=== PATIENT | female | born 1980 | race Caucasian/White ===

== ENCOUNTER → 2018-01-08 12:47 | Outpatient (CLI) | payer OTHER, SELFPAY ==
[2018-01-08 14:01] LABS: Cholesterol 152 mg/dL (200); Estradiol 50.8 pg/mL; Follicle Stimulating Hormone 5.3 mIU/mL; Glucose 91 mg/dL (74-106); High Density Lipoprotein 30 mg/dL; Thyroid Stim Hormone (TSH) 1.54 uIU/mL (0.358-3.74); Triglycerides 260 mg/dL; Very Low Density Lipoprotein 52 mg/dL (5-40)
[2018-01-12 03:07] LABS: DHEA Sulfate 279.1 ug/dL (57.3-279.2)
[2018-01-12 10:22] LABS: Testosterone Free 2.6 pg/mL (0.0-4.2)
== END ==
PROVIDERS: Family Provider Family Medicine; PCP Family Medicine; Visit Provider Obstetrics & Gynecology
DX: N97.9 Female infertility, unspecified (principal); E28.2 Polycystic ovarian syndrome
CPT/HCPCS: 36415; 80061; 82627; 82670; 82947; 83001; 84402; 84443; 82626

== ENCOUNTER 2018-04-08 12:08 | Emergency (ER) | payer OTHER, SELFPAY ==
[2018-04-08 12:09] VITALS: BP 159/92; PULSE 100; RESP 18; TEMP 36.8; O2SAT 99; BMI 46.0
--- NOTE | 2018-04-08 12:15 | EKG12_ITS ---
Test Reason : PALPS Blood Pressure : / mmHG Vent. Rate : 093 BPM Atrial Rate : 093 BPM P-R Int : 144 ms QRS Dur : 082 ms QT Int : 370 ms P-R-T Axes : 024 -30 008 degrees QTc Int : 460 ms Normal sinus rhythm Left axis deviation Abnormal ECG Confirmed by ALBERTO SUMNER, JULIANNE ([id number]), multimedia editor ROXANN MATAMOROS ([id number]) on 04/11/2018 2:44:22 PM Referred By: KATHLEEN Confirmed By:JULIANNE DOMINGUEZ MD
--- NOTE | 2018-04-08 12:16 | RAD_ITS ---
STUDY: X-RAY CHEST REASON FOR EXAM: Female, 37 years old. tightness, heart flutters x several days recently started taking metabolism booster, possible side effect TECHNIQUE: Frontal and lateral views of the chest. COMPARISON: None. FINDINGS: The lungs are clear and expanded. There is no demonstrated pleural abnormality. Normal size heart. Normal mediastinum and elisa. Normal visualized pulmonary arteries. Normal visualized aortic arch and descending thoracic aorta. Normal visualized thoracic spine. Normal visualized ribs, clavicles, and shoulders. There is no demonstrated abnormality of the visualized soft tissue structures of the upper abdomen. RAD/Chest PA and Lateral IMPRESSION: Normal x-ray examination of the chest. Electronically Signed: Meek Galeas MD at 13:13 EDT Tel , Service support ,
--- NOTE | 2018-04-08 12:23 | PCA ---
NO OLD EKG IN MUSE
[2018-04-08] MEDS: 0.9% Normal Saline 1,000 ML 1000 ML IV (12:27)
[2018-04-08 12:57] LABS: Hematocrit 39.5 % (37-47); Hemoglobin 12.9 g/dl (12.0-15.0); Mean Corp Hgb Conc 32.7 g/gl (32-36); Mean Corpuscular Hgb 27.1 pg (27.0-32.0); RBC Distribution Width CV 14.1 % (11.6-14.6); Red Blood Count 4.76 M/mm3 (4.2-5.4); White Blood Count 8.9 K/mm3 (4.4-11.0)
[2018-04-08 12:58] LABS: Absolute Lymphocyte Count 2.59 X10^3/ul (0.83-4.51); Absolute Neutrophil Count 5.1 X10^3/uL (2.0-7.7); Basophil# 0.05 X10^3/uL; Basophil% 0.6 % (0-1); Eosinophil# 0.46 X10^3/uL; Eosinophils% 5.2 % (0-5); Lymphocyte # 2.59 X10^3/ul (4.0); Lymphocyte % 29.1 % (19-41); Mean Platelet Vol. 9.4 fl (6.2-12.0); Monocyte# 0.66 X10^3/uL; Monocyte% 7.4 % (0-10); Neutrophil # 5.12 X10^3/uL (2.7-7.7); Neutrophil % 57.6 % (47-70); POSITIVE COUNT NO; POSITIVE DIFFERENTIAL NO; POSITIVE MORPHOLOGY NO; Platelet Count 299 K/mm3 (150-450)
[2018-04-08 13:04] LABS: D-Dimer Quantitative (DVT/PE) 0.28 FEU/ug/m (0.27-0.49)
[2018-04-08 13:06] LABS: ALB/GLOB Ratio 0.9 RATIO (0.9-2.4); AST(SGOT) 22 U/L (15-37); Alanine Aminotransfer ALT/SGPT 44 U/L (13-56); Albumin, Serum 3.8 g/dL (3.2-5.0); Alkaline Phosphatase 87 U/L (45-117); Anion Gap 5 (5-15); BUN 11 mg/dL (7-18); BUN/Creat Ratio 12.5 RATIO (10-20); Calcium,Total 8.8 mg/dL (8.5-10.1); Chloride 101 mmol/L (98-107); Creatinine, Serum 0.88 mg/dL (0.55-1.02); EST Glomerular Filtration Rate 77 mL/min (>60); Est Glom Filt Rate - Afr Amer 94 mL/min (>60); Estimated Creatinine Clearance 73.11 ml/min; Globulin 4.1 g/dL (2.2-4.2); Glucose 82 mg/dL (74-106); Potassium 3.7 mmol/L (3.5-5.1); Protein, Total 7.9 g/dL (6.4-8.2); Sodium Level 138 mmol/L (136-145)
--- NOTE | 2018-04-08 13:44 | ED.DCSUM_ITS ---
- ER Visit Summary Date of Service: 04/08/18 Chief Complaint: Chest pain, heart fluttering History of Present Illness: The patient is a 37 F who is otherwise healthy presents with 3 days of chest pain. The patient states that his been off and on but has now been constant for the past 24 hours. She states she also felt as if her heart was fluttering. She denies dizziness or lightheadedness. She denies shortness of breath. Patient is otherwise healthy. She has no history of cardiovascular disease. She does not smoke. She states that she was going to the grocery store and felt like her pain was worsening so she presented here. She is never had a stress test or heart catheterization. She has no history of pulmonary embolus. Physical Examination: Vital signs reviewed General: Well-nourished, well-developed Head: Normocephalic, atraumatic Eyes: Pupils equal and reactive, extraocular muscles intact Neck, supple, no lymphadenopathy Heart: Regular rate and rhythm Respiratory: No distress, clear bilaterally Abdomen: Soft, nontender, nondistended, no peritoneal signs Back: Nontender Extremities: Nontender, no edema, no cords Skin: Normal color no rash Neuro: Alert and oriented, no focal or lateralizing deficits Test Results: [] Emergency Department Course and Treatment: EKG was obtained on patient arrival. It was sinus rhythm without acute ischemic change. There is normal axis and intervals. She has had symptomatic palpitations. There was no dysrhythmia. She has no prolonged QT or shortened TX. She has had no PVCs or any other dangerous process on the monitor. Her x-ray was unremarkable. Screening labs including cardiac enzymes and d-dimer negative. At this time, I do not suspect a dangerous cause of her pain. I do feel that this may be musculoskeletal or even symptomatic PVCs. I do feel the patient is safe for outpatient therapy. She is comfortable with this plan of care. Treatment Plan: [] Disposition: Discharge Impression: 1. Chest pain 2. Palpitations This note was generated with [employer] dictation software. It may contain incorrect words, spelling, and punctuation that were not noted in review of the chart prior to signing ED Disposition - Plan for ED Patient: Chief Complaint: General Illness Instructions: ED Palpitations Referrals: Damaris Vines DO [Primary Care Provider] -
[2018-04-08 13:54] VITALS: BP 112/56; PULSE 101; RESP 18; O2SAT 99
== END 2018-04-08 14:16 | disposition home or self-care (01) ==
LOC: ED 13:58
PROVIDERS: Emergency Provider Emergency Medicine; Family Provider Family Medicine; PCP Family Medicine
DX: R07.9 Chest pain, unspecified (principal); R00.2 Palpitations; Z79.899 Other long term (current) drug therapy
CPT/HCPCS: 71046; 80053; 84484; 85025; 85379; 93005; 96360; 99285; J7030

== ENCOUNTER → 2019-01-31 13:54 | Outpatient (CLI) | payer OTHER, SELFPAY ==
[2019-01-27 13:50] VITALS: BMI 46.0
--- NOTE | 2019-01-31 13:57 | US_ITS ---
STUDY: ULTRASOUND BREAST - LEFT REASON FOR EXAM: Female, 38 years old. Palpable lump left breast. TECHNIQUE: Axial and longitudinal images of the LEFT breast were performed with a high resolution ultrasound transducer. COMPARISON: Comparison is made with prior mammogram done earlier today. FINDINGS: LEFT Breast: The medial aspect of the breast at the site of the palpable amount he was examined by ultrasound. There is a homogeneous fiber glandular tissue. No solid or cystic mass lesion is seen. US/Breast Complete Unilateral IMPRESSION: Unremarkable examination. ASSESSMENT CATEGORY: BIRADS Category 1: Negative. A letter regarding these results will be sent to the patient by the facility within 30 days. Electronically Signed: Dale Stewart, at 9:04 EDT , Service support ,
--- NOTE | 2019-01-31 13:57 | BI_ITS ---
MAMMOGRAPHY - BILATERAL DIAGNOSTIC REASON FOR EXAM: Female, 38 years old. 2 week history of a left breast lump. PERTINENT HISTORY: Grandmother with breast cancer. TECHNIQUE: Digital bilateral breast janett (3D mammographic acquisition) in the CC and MLO projections. 2-D mediolateral oblique (MLO) and craniocaudad (CC) views of both breasts were obtained. CAD: Full Field Digital Mammography with Computer Added Detection was performed. COMPARISON: Comparison is made with prior outside examination dated April 27, 2017. FINDINGS: Breast Composition: There are scattered areas of fibroglandular density. There are no dominant masses or suspicious calcifications. Stable bilateral fat containing axillary lymph nodes. No other significant abnormalities are identified. There has been no significant change since the prior study. BI/DIAG MAMM W/CAD, BILAT IMPRESSION: Stable bilateral diagnostic mammogram. With the patient's history of a palpable abnormality in the left breast, correlation with ultrasound is recommended. ASSESSMENT CATEGORY: BIRADS Category 0: Incomplete. Need additional imaging evaluation. A letter regarding these results will be sent to the patient by the facility within 30 days. Approximately 10% of breast cancers are not detected by mammography. A normal mammogram should not delay biopsy of a clinically suspicious abnormality. Electronically Signed: Dale Stewart, at 15:00 EDT , Service support ,
== END ==
PROVIDERS: Family Provider Family Medicine; PCP Nurse Practitioner Family; Referring Provider Nurse Practitioner Women's Health; Visit Provider Nurse Practitioner Women's Health
DX: N63.20 Unspecified lump in the left breast, unspecified quadrant (principal)
CPT/HCPCS: 76641; 77062; 77066; G0279

== ENCOUNTER → 2019-08-14 16:57 | Outpatient (CLI) | payer OTHER, SELFPAY ==
[2019-08-14 11:28] VITALS: BMI 46.0
[2019-08-17 12:02] LABS: HPV APTIMA, High Risk Negative (Negative)
== END ==
PROVIDERS: PCP Nurse Practitioner Family; Referring Provider Obstetrics & Gynecology; Visit Provider Obstetrics & Gynecology
DX: Z12.4 Encounter for screening for malignant neoplasm of cervix (principal)
CPT/HCPCS: 87624; 88175; G0145

== ENCOUNTER → 2019-09-07 14:05 | Outpatient (CLI) | payer OTHER, SELFPAY ==
[2019-08-14 11:28] VITALS: BMI 46.0
[2019-09-07 14:59] LABS: Estradiol 41.6 pg/mL; Follicle Stimulating Hormone 5.3 mIU/mL; T4 Free Direct 0.85 ng/dL (0.76-1.46)
[2019-09-07 15:27] LABS: Vitamin D,25 Hydroxy 21.1 ng/mL
[2019-09-11 11:56] LABS: Testosterone Free 2.1 pg/mL (0.0-4.2)
== END ==
PROVIDERS: PCP Nurse Practitioner Family; Referring Provider Obstetrics & Gynecology; Visit Provider Obstetrics & Gynecology
DX: E28.2 Polycystic ovarian syndrome (principal); R53.83 Other fatigue
CPT/HCPCS: 36415; 82306; 82670; 83001; 84402; 84439; 84443

== ENCOUNTER → 2020-02-05 09:59 | Outpatient (CLI) | payer OTHER, SELFPAY ==
[2019-01-27 13:50] VITALS: BMI 46.0
[2019-08-14 11:28] VITALS: BMI 46.0
--- NOTE | 2020-02-05 09:59 | BI_ITS ---
MAMMOGRAPHY - BILATERAL SCREENING REASON FOR EXAM: Female, 39 years old. Routine annual screening examination. PERTINENT HISTORY: Grandmother with breast cancer. TECHNIQUE: Digital bilateral breast venus (3D mammographic acquisition) in the CC and MLO projections. 2-D mediolateral oblique (MLO) and craniocaudad (CC) views of both breasts were obtained. CAD: Full Field Digital Mammography with Computer Added Detection was performed. COMPARISON: Comparison is made with prior examination dated 01/31/2019. FINDINGS: Breast Composition: There are scattered areas of fibroglandular density. There are no dominant masses or suspicious calcifications. Stable fat-containing benign-appearing bilateral axillary lymph nodes. No other significant abnormalities are identified. There has been no significant change since the prior study. BI/SCREEN MAMM (CAD) W/VENUS BILAT IMPRESSION: Stable bilateral screening mammogram. Yearly follow-up mammogram recommended. (A) ASSESSMENT CATEGORY: BIRADS Category 2: Benign. A letter regarding these results will be sent to the patient by the facility within 30 days. Approximately 10% of breast cancers are not detected by mammography. A normal mammogram should not delay biopsy of a clinically suspicious abnormality. [id number] Electronically Signed: Dale Stewart, at 10:41 EDT , Service support ,
== END ==
PROVIDERS: PCP Nurse Practitioner Family; Referring Provider Obstetrics & Gynecology; Visit Provider Obstetrics & Gynecology
DX: Z12.31 Encounter for screening mammogram for malignant neoplasm of breast (principal)
CPT/HCPCS: 77063; 77067

== ENCOUNTER 2021-07-16 12:31 | Outpatient (CLI) | payer OTHER, SELFPAY ==
[2021-07-16 12:47] LABS: Absolute Lymphocyte Count 2.64 X10^3/uL (0.83-4.51); Absolute Neutrophil Count 4.9 X10^3/uL (2.0-7.7); Basophil# 0.07 X10^3/uL; Basophil% 0.8 % (0-1); Eosinophil# 0.45 X10^3/uL; Eosinophils% 5.2 % (0-5); Hematocrit 37.4 % (37-47); Hemoglobin 11.7 g/dL (12.0-15.0); Lymphocyte # 2.64 X10^3/ul (0.83-4.51); Lymphocyte % 30.6 % (19-41); Mean Corp Hgb Conc 31.3 g/dL (32-36); Mean Corpuscular Hgb 25.5 pg (27.0-32.0); Mean Corpuscular Volume 81.7 fL (81-99); Mean Platelet Vol. 9.5 fl (6.2-12.0); Monocyte# 0.56 X10^3/uL; Monocyte% 6.5 % (0-10); NRBC Flagged by Analyzer 0 % (0-5); Neutrophil # 4.88 X10^3/uL (2.7-7.7); Neutrophil % 56.6 % (47-70); Platelet Count 293 K/mm3 (150-450); RBC Distribution Width CV 15.8 % (11.6-14.6); RBC Distribution Width SD 47.4 fl (35.1-43.9); Red Blood Count 4.58 M/mm3 (4.2-5.4); White Blood Count 8.6 K/mm3 (4.4-11.0)
== END 2021-07-16 23:59 | disposition short-term general hospital (02) ==
LOC: PAVLAB 12:32
PROVIDERS: PCP Nurse Practitioner Family; Referring Provider Obstetrics & Gynecology; Visit Provider Obstetrics & Gynecology
DX: N93.9 Abnormal uterine and vaginal bleeding, unspecified (principal); D68.9 Coagulation defect, unspecified
CPT/HCPCS: 36415; 85025

== ENCOUNTER 2021-09-02 09:26 | Outpatient (CLI) | payer OTHER, SELFPAY ==
--- NOTE | 2021-09-02 09:30 | BI_ITS ---
MAMMOGRAPHY - BILATERAL DIAGNOSTIC REASON FOR EXAM: Female, 40 years old. Bilateral areolar pruritus. PERTINENT HISTORY: Grandmother with breast cancer. TECHNIQUE: Digital bilateral breast janett (3D mammographic acquisition) in the CC and MLO projections. 2-D mediolateral oblique (MLO) and craniocaudad (CC) views of both breasts were obtained. CAD: Full Field Digital Mammography with Computer Added Detection was performed. COMPARISON: Comparison is made with prior examination 02/05/2020 and 01/31/2019. FINDINGS: Breast Composition: There are scattered areas of fibroglandular density. There are no dominant masses or suspicious calcifications. No other significant abnormalities are identified. There has been no significant change since the prior study. BI/DIAG MAMM W/CAD, BILAT IMPRESSION: Stable bilateral diagnostic mammogram. Routine patient''s history of bilateral periareolar itchiness, correlation with ultrasound is recommended. ASSESSMENT CATEGORY: BIRADS Category 0: Incomplete. Need additional imaging evaluation. A letter regarding these results will be sent to the patient by the facility within 30 days. Approximately 10% of breast cancers are not detected by mammography. A normal mammogram should not delay biopsy of a clinically suspicious abnormality. Electronically Signed: Dale Stewart MD at 10:48 EST ,
--- NOTE | 2021-09-02 10:12 | US_ITS ---
STUDY: ULTRASOUND BREAST - RIGHT REASON FOR EXAM: Female, 40 years old. Periareolar pruritus. TECHNIQUE: Axial and longitudinal images of the RIGHT breast were performed with a high resolution ultrasound transducer. # OF IMAGES: 57 COMPARISON: Comparison is made with prior mammogram done earlier today. FINDINGS: RIGHT Breast: The periareolar region was examined by ultrasound. No sonographic abnormality is seen. IMPRESSION: No sonographic abnormality is seen. ASSESSMENT CATEGORY: No sonographic abnormality is seen. Electronically Signed: Dale Stewart MD at 15:33 EST , STUDY: ULTRASOUND BREAST - LEFT REASON FOR EXAM: Female, 40 years old. Periareolar pruritus. TECHNIQUE: Axial and longitudinal images of the LEFT breast were performed with a high resolution ultrasound transducer. # OF IMAGES: 57 COMPARISON: Comparison is made with prior mammogram done earlier in the day as well as prior ultrasound of the left breast dated 01/31/2019. FINDINGS: LEFT Breast: The periareolar region was examined by ultrasound. No sonographic abnormality is seen. US/Breast Limited Unilateral IMPRESSION: No sonographic abnormality is seen. ASSESSMENT CATEGORY: BIRADS Category 1: Negative. A letter regarding these results will be sent to the patient by the facility within 30 days. Electronically Signed: Dale Stewart MD at 15:34 EST ,
== END 2021-09-02 23:59 | disposition home or self-care (01) ==
PROVIDERS: PCP Nurse Practitioner Family; Referring Provider Obstetrics & Gynecology; Visit Provider Obstetrics & Gynecology
DX: L30.8 Other specified dermatitis (principal); R92.8 Other abnormal and inconclusive findings on diagnostic imaging of breast
CPT/HCPCS: 76642; 77062; 77066; G0279

== ENCOUNTER → 2021-12-29 | Outpatient (CLI) | payer OTHER, SELFPAY ==
[2021-12-29 13:26] LABS: Absolute Lymphocyte Count 3.01 X10^3/uL (0.83-4.51); Absolute Neutrophil Count 6.7 X10^3/uL (2.0-7.7); Basophil# 0.06 X10^3/uL; Basophil% 0.6 % (0-1); Eosinophil# 0.52 X10^3/uL; Eosinophils% 4.8 % (0-5); Hematocrit 34.6 % (37-47); Hemoglobin 10.6 g/dL (12.0-15.0); Lymphocyte # 3.01 X10^3/ul (0.83-4.51); Lymphocyte % 27.9 % (19-41); Mean Corp Hgb Conc 30.6 g/dL (32-36); Mean Corpuscular Hgb 25.2 pg (27.0-32.0); Mean Corpuscular Volume 82.4 fL (81-99); Mean Platelet Vol. 9.7 fl (6.2-12.0); Monocyte# 0.45 X10^3/uL; Monocyte% 4.2 % (0-10); NRBC Flagged by Analyzer 0 % (0-5); Neutrophil # 6.67 X10^3/uL (2.7-7.7); Neutrophil % 61.9 % (47-70); Platelet Count 343 K/mm3 (150-450); RBC Distribution Width CV 15.8 % (11.6-14.6); RBC Distribution Width SD 47.2 fl (35.1-43.9); White Blood Count 10.8 K/mm3 (4.4-11.0)
== END | disposition home or self-care (01) ==
LOC: PAVLAB 13:15
PROVIDERS: PCP Nurse Practitioner Family; Referring Provider Obstetrics & Gynecology; Visit Provider Obstetrics & Gynecology
DX: N93.9 Abnormal uterine and vaginal bleeding, unspecified (principal); D68.9 Coagulation defect, unspecified
CPT/HCPCS: 36415; 85025

== ENCOUNTER → 2022-01-01 | Outpatient (CLI) | payer OTHER, SELFPAY ==
--- NOTE | 2022-01-01 08:30 | US_ITS ---
STUDY: ULTRASOUND OF THE FEMALE PELVIS - COMPLETE REASON FOR EXAM: Female, 41 years old. IUD placement check LMP: Unknown. TECHNIQUE: Transabdominal and Transvaginal TECHNICAL QUALITY: Adequate. COMPARISON: None. FINDINGS: The uterus is anteverted and is in a midline position. The uterus measures 10.1 cm x 6.1 cm x 4.5 cm. There is a Nabothian cyst of the cervix. The endometrium measures 8 mm in thickness, and is hyperechoic. There is no demonstrated endometrial mass. There is no demonstrated myometrial mass. I.U.D. - The patient does not have an I.U.D. The right ovary is visualized. The right ovary measures 2.6 cm x 1.7 cm x 2.2 cm. There is no right ovarian cyst or ovarian mass. There is no visualized right adnexal mass or complex lesion. There is normal arterial and normal venous vascularity. The left ovary is visualized. The left ovary measures 4.8 cm x 2.85 x 2.6 cm. There is no left ovarian cyst or ovarian mass. There is no visualized left adnexal mass or complex lesion. There is normal arterial and normal venous vascularity. There is no fluid in the cul-de-sac. The pre void volume of the bladder was 458 ml. US/Pelvic (Non ) IMPRESSION: The IUD was not visualized within the uterus. Electronically Signed: Dale Stewart MD at 9:52 EDT ,
--- NOTE | 2022-01-01 08:30 | US_ITS ---
STUDY: ULTRASOUND OF THE FEMALE PELVIS - COMPLETE REASON FOR EXAM: Female, 41 years old. IUD placement check LMP: Unknown. TECHNIQUE: Transabdominal and Transvaginal TECHNICAL QUALITY: Adequate. COMPARISON: None. FINDINGS: The uterus is anteverted and is in a midline position. The uterus measures 10.1 cm x 6.1 cm x 4.5 cm. There is a Nabothian cyst of the cervix. The endometrium measures 8 mm in thickness, and is hyperechoic. There is no demonstrated endometrial mass. There is no demonstrated myometrial mass. I.U.D. - The patient does not have an I.U.D. The right ovary is visualized. The right ovary measures 2.6 cm x 1.7 cm x 2.2 cm. There is no right ovarian cyst or ovarian mass. There is no visualized right adnexal mass or complex lesion. There is normal arterial and normal venous vascularity. The left ovary is visualized. The left ovary measures 4.8 cm x 2.85 x 2.6 cm. There is no left ovarian cyst or ovarian mass. There is no visualized left adnexal mass or complex lesion. There is normal arterial and normal venous vascularity. There is no fluid in the cul-de-sac. The pre void volume of the bladder was 458 ml. US/Transvaginal Non- IMPRESSION: The IUD was not visualized within the uterus. Electronically Signed: Dale Stewart MD at 9:52 EDT ,
--- NOTE | 2022-01-01 09:20 | RAD_ITS ---
STUDY: X-RAY - ABDOMEN/PELVIS REASON FOR EXAM: Female, 41 years old. IUD placement TECHNIQUE: Single AP view of the abdomen / pelvis. COMPARISON: None. FINDINGS: There is an unremarkable bowel gas pattern. The visualized liver, spleen and kidneys are grossly normal in size and morphology. Normal soft tissue structures. Normal visualized osseous structures. RAD/Abdomen Single View IMPRESSION: Normal x-ray examination of the abdomen and pelvis. No intrauterine device identified. Electronically Signed: Marco Antonio Frazier MD at 17:02 EDT ,
== END | disposition home or self-care (01) ==
PROVIDERS: PCP Nurse Practitioner Family; Visit Provider Obstetrics & Gynecology
DX: N93.9 Abnormal uterine and vaginal bleeding, unspecified (principal); D68.9 Coagulation defect, unspecified; T83.32XA Displacement of intrauterine contraceptive device, initial encounter
CPT/HCPCS: 74018; 76830; 76856; 93005

== ENCOUNTER 2022-02-17 13:09 | Observation (INO) | payer OTHER, SELFPAY ==
--- NOTE | 2022-02-12 11:08 | EKG12_ITS ---
Test Reason : PRE-OP Blood Pressure : / mmHG Vent. Rate : 101 BPM Atrial Rate : 101 BPM P-R Int : 118 ms QRS Dur : 070 ms QT Int : 328 ms P-R-T Axes : 106 -27 021 degrees QTc Int : 425 ms Sinus tachycardia Nonspecific ST abnormality Abnormal ECG Confirmed by ASAEL SUMNER, PRESTON ([id number]), art editor BLAS TORRES ([id number]) on 02/13/2022 1:50:51 PM Referred By: DEVAN Confirmed By:PRESTON VYAS MD
[2022-02-12 12:05] LABS: Absolute Lymphocyte Count 2.02 X10^3/uL (0.83-4.51); Absolute Neutrophil Count 5.6 X10^3/uL (2.0-7.7); Basophil# 0.05 X10^3/uL; Basophil% 0.6 % (0-1); Eosinophil# 0.36 X10^3/uL; Eosinophils% 4.3 % (0-5); Hematocrit 36.8 % (37-47); Hemoglobin 11.3 g/dL (12.0-15.0); Lymphocyte # 2.02 X10^3/ul (0.83-4.51); Lymphocyte % 24.1 % (19-41); Mean Corp Hgb Conc 30.7 g/dL (32-36); Mean Corpuscular Hgb 25.1 pg (27.0-32.0); Mean Corpuscular Volume 81.8 fL (81-99); Monocyte# 0.37 X10^3/uL; Monocyte% 4.4 % (0-10); NRBC Flagged by Analyzer 0 % (0-5); Neutrophil # 5.58 X10^3/uL (2.7-7.7); Neutrophil % 66.5 % (47-70); Platelet Count 312 K/mm3 (150-450); RBC Distribution Width CV 15.2 % (11.6-14.6); RBC Distribution Width SD 45.5 fl (35.1-43.9); White Blood Count 8.4 K/mm3 (4.4-11.0)
[2022-02-12 12:15] LABS: International Normalized Ratio 1.2; Prothrombin Time (Protime)PT. 14.6 SECONDS (11.7-14.9)
[2022-02-12 12:16] LABS: Partial Thromboplast Time 34.5 Seconds (24.1-36.2)
[2022-02-12 12:43] LABS: Magnesium 1.9 mg/dL (1.6-2.6)
[2022-02-12 12:51] LABS: ALB/GLOB Ratio 0.8 RATIO (0.9-2.4); AST(SGOT) 26 U/L (15-37); Alanine Aminotransfer ALT/SGPT 52 U/L (13-56); Albumin, Serum 3.3 g/dL (3.2-5.0); Alkaline Phosphatase 61 U/L (45-117); Anion Gap 5 (5-15); BUN 11 mg/dL (7-18); Calcium,Total 8.9 mg/dL (8.5-10.1); Chloride 105 mmol/L (98-107); Creatinine, Serum 0.85 mg/dL (0.55-1.02); EST Glomerular Filtration Rate 79 mL/min (>60); Est Glom Filt Rate - Afr Amer 96 mL/min (>60); Globulin 3.9 g/dL (2.2-4.2); Glucose 170 mg/dL (74-106); Potassium 4.2 mmol/L (3.5-5.1); Protein, Total 7.2 g/dL (6.4-8.2); Sodium Level 138 mmol/L (136-145)
--- NOTE | 2022-02-16 16:49 | HP.PCM_ITS ---
History and Physical [facility] [address] [place] [address] OFFICE VISIT Date of Service:? 01/29/22 MR#: [id number] Acct: [id number] Name:DOMO CARTAGENA Rep #: [id number] : 1980 ? ? Provider: Dr. Joanne Crandall MD Age/Sex:? 41/F ? ? [place] [facility] [place]: Signed Intake Vital Signs ? 01/15/2209:43 01/29/2214:00 01/29/2214:01 Height 5 ft 3 in 5 ft 3 in 5 ft 3 in Weight: ? 282 lb ? BMI ? 49.9 ? BP ? 122/84 H ? Intake Visit Reasons:?[facility] Chief Complaint: pre op [facility] Director Of Kids Required: No Is patient in pain?: No Allergies lisinopril Allergy (Mild, Verified 09/09/21 09:18) coughing Medications epinephrine 0.3 mg/0.3 mL injection, auto-injector (EpiPen) 0.3 mg IM ONCE 02/14/18 [History Confirmed 01/29/22] esomeprazole magnesium 20 mg capsule,delayed release (Nexium) 20 mg PO QDAY 02/14/18 [History Confirmed 01/29/22] cetirizine 10 mg capsule 10 mg PO DAILY 04/08/18 [History Confirmed 01/29/22] red yeast rice 600 mg capsule 600 mg PO DAILY 01/27/19 [History Confirmed 01/29/22] cholecalciferol (vitamin D3) 50 mcg (2,000 unit) tablet 2,000 unit PO DAILY 08/14/19 [History Confirmed 01/29/22] zinc 50 mg tablet 50 mg PO DAILY 08/14/19 [History Confirmed 01/29/22] lactobacillus combination no.8 3 billion cell capsule (Adult Probiotic) 3,000 mmu cells PO DAILY 08/15/20 [History Confirmed 01/29/22] magnesium oxide 500 mg capsule 500 mg PO DAILY 08/15/20 [History Confirmed 01/29/22] apixaban 5 mg tablet (Eliquis) 5 mg PO BID 07/16/21 [History Confirmed 01/29/22] losartan 50 mg tablet 50 mg PO DAILY 07/16/21 [History Confirmed 01/29/22] metformin 1,000 mg tablet 1,000 mg PO BID 07/16/21 [History Confirmed 01/29/22] norethindrone acetate 5 mg tablet See Rx Instructions .Route .COMPLEX #12 tabs 01/29/22 [Rx Confirmed 01/29/22] Is last menstrual period known: No Post menopausal: No Patient : No : No [facility] Medical History?(Updated 01/29/22 @ 14:[address] Joanne Crandall MD) Contraceptive management COVID-19 Cutaneous mastocytosis Diabetes History of depression History of gestational diabetes History of hysterosalpingogram History of PCOS History of pre-eclampsia Hypertension Surgical History?(Updated 01/29/22 @ 14:03 by Renata Hendricks) delivery delivered History of hysteroscopy History of laparoscopy History of tonsillectomy S/P wrist surgery Family History? Mother Myocardial infarction COPD (chronic obstructive pulmonary disease)Grandmother Breast cancer Social History? Smoking Status:? Never smoker alcohol intake:? never substance use type:? does not use caffeine:? Yes what type of physical activity do you participate in:? none seatbelt use:? always do you feel safe at home:? Yes additional social history:? 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 she is on eliquis and she failed an IUD and expulsed it.? she was counseled regarding either ablation or hysterectomy and decided for hysterectomy ultimately.? US reviewed.? She had another long menses where she had to take progesterone short course to sto pbleeding.? she is getting preop medical clearance instructions on her blood thinners to bridge. Female Reproductive History Menopausal Symptoms: No night sweats Pregancy History ? ? ? 3 ? Elective abortions ? Hx Para ? ? ? 1 ? Spontaneous abortions ? Hx # Term Pregnancies ? Ectopic pregnancies ? Hx # Pregnancies ? Multiple births ? # of living children ? Past Pregnancies Del. Date Name GA/Weeks Outcome Route Bth Weight [facility] F[facility] Unknown 2014 Rylie 39 live - full term C- section ? Female ? ? ? [facility] ? ROS Const Constitutional: Denies fatigue, fever(s), headache(s), increased appetite, poor appetite, night sweats, weight gain or weight loss ENT ENT: Reports system reviewed and no additional complaints, except as documented Cardio Card: Denies chest pain Resp Resp: Denies cough or dyspnea GI GI: Reports as per HPI; Denies abdominal pain, constipation, nausea or vomiting : Reports as per HPI; Denies difficulty voiding, dysuria, nipple discharge, urinary frequency, urinary incontinence, urinary hesitancy, urinary urgency, vaginal discharge, vaginal dryness, vaginal odor or vaginal pruritus Musc Musc: Denies arthralgias, back pain or muscle weakness Skin Skin/Breast: Denies change in hair, breast mass, breast pain, breast skin changes or nipple discharge Neuro Neuro: Reports system reviewed and no additional complaints, except as documented Psych Psych: Reports system reviewed and no additional complaints, except as documented Endo Endo: Denies cold intolerance, excessive sweating, heat intolerance or polydipsia Michael/Lymph Hematologic/Lymphatic: Denies lymphadenopathy Exam Const General: cooperative, healthy appearing, comfortable, no acute distress and well developed Nutritional Appearance: average body habitus Orientation: alert [facility] Head: normal to inspection and normocephalic Ears: hearing grossly normal bilaterally and external ears normal Nose: external nose normal and nares normal Face and sinus: normal facial exam Neck Neck: normal visual inspection and trachea midline Thyroid: thyroid normal Chest Chest palpation & inspection: normal inspection of the chest Resp Effort & Inspection: normal respiratory effort Auscultation: clear to auscultation bilaterally Cardio Rate: regular rate Rhythm: regular rhythm Heart Sounds: S1 normal and S2 normal GI Inspection: normal to inspection and non-distended Palpation: soft and no hepatosplenomegaly Musc Other: gross motor intact no deficits, full bilateral strength Skin General: no rashes or lesions noted Neuro General: patient alert, patient awake, moves all extremities and no focal motor deficits Motor: muscle tone normal throughout Extrem General: normal to inspection and no pedal edema Psych Appearance: grossly normal Mental Status: mental status grossly normal Affect: normal affect Speech and Movement: speech and movement normal Coding Level of Care Code Off vis,est,level 5 Diagnoses Abnormal uterine bleeding due to coagulopathy? N93.9; D68.9 Pulmonary embolism? I26.99 Assessment and Plan Assessment and Plan (1) Abnormal uterine bleeding due to coagulopathy: ?Status:?Acute ?Comment: plan STO after surgery. on Eliquis. PE in 05/25. IUD inserted. strings not seen at 12/22 FU, US ordered to evaluate. discussed ablation if desired in the future, would need medical clearance for this. (2) Pulmonary embolism: ?Status:?Acute ?Comment: Due to COVID Plan After discussing the patient's diagnosis and treatment plan options, patient wishes to proceed with surgical management.? I have discussed with the patient the risks, benefits, and alternatives of the procedure which include but are not limited to risks of anesthesia, bleeding, infection, possible damage to bowel, bladder, or surrounding vasculature which could lead to additional surgery to evaluate any complications.? Patient agrees to procedure and wishes to proceed.? ACOG/uptodate references given for additional information regarding procedure.? UPDATE- I have seen the patient and performed any clinically relevant updates to the history and physical exam. Joanne Crandall MD Assessment & Plan Assessment/Plan (1) PCOS (polycystic ovarian syndrome): (2) Pulmonary embolism: (3) Abnormal uterine bleeding due to coagulopathy: (4) Contraceptive management: (5) Diabetes: (6) Hypertension:
[2022-02-17] VITALS (13 sets, daily range): BP systolic 105–135; BP diastolic 53–77; PULSE 85–111; RESP 16–18; TEMP 36.4–37.2; O2SAT 93–100; BMI 49.9
[2022-02-17] MEDS: dexAMETHasone 10 MG/ML Vial 8 MG IV (09:50)
[2022-02-17] MEDS: Magnesium 2 GM IV (09:50)
[2022-02-17] MEDS: Enoxaparin 40 MG/0.4 ML Syringe SC (09:50)
[2022-02-17] MEDS: Lactated Ringers 1,000 ML 40 ML IV (09:50)
[2022-02-17 10:15] LABS: Internal QC Validated? YES +Cl - CLEAR BKGD; Pregnancy, Urine Negative Negative
[2022-02-17] MEDS: Phenazopyridine 95 MG Tablet 190 MG PO (10:28)
[2022-02-17] MEDS: Gabapentin 600 MG Tablet PO (10:28)
[2022-02-17] MEDS: Acetaminophen 500 MG Tablet 1000 MG PO ×3 (10:29→23:11)
[2022-02-17] MEDS: Celecoxib 200 MG Capsule 400 MG PO (10:29)
[2022-02-17] MEDS: Scopolamine 1mg/72hr Patch 1 PATCH TD (10:29)
[2022-02-17 11:06] LABS: Bedside Glucose 144 mg/dL (74-106)
--- NOTE | 2022-02-17 11:55 | HYST_PTH ---
PATIENT: DOMO HA LOC: MS3 U#:[id number] AGE/SX: 41/F ROOM: OK319 RE02/17/[address]: Dr. Joanne Crandall MD : 1980 BED: 1 DIS: 02/18/2022 SPEC #: [id number] RECD: 02/17/22 16:04 STATUS: LUISITO HERNANDEZ #: [id number] KAY: 02/17/22 11:[address]: Joanne Crandall DEPT: SURGICAL PATHOLOGY RECD BY: Gerard Soares ENTERED: 02/18/22 07:28 SP TYPE: HYSTERECT OTHR DR: Ness Daniels, PRINTED [employer]AR[employer] LAMINATOR-C Tissues: Uterus, NOS Procedures: Surgery Specimen Level V HEADER OPERATION: ERAS, hysterectomy, LAVH, salpingectomy PRE-OP DIAGNOSIS: Abnormal uterine bleeding due to coagulopathy TISSUE SUBMITTED: Cervix, uterus, bilateral fallopian tubes MICROSCOPIC DIAGNOSIS Uterus, hysterectomy: Cervix ? Nabothian cysts Endometrium ? secretory endometrium, benign stromal hyperplasia with degenerative change Myometrium ? no pathologic change Right and left fallopian tubes -no pathologic change AM:hector 02/19/2022 MICROSCOPIC DESCRIPTION Slides are reviewed. GROSS DESCRIPTION Received in fixative is one container labeled with the patient's name and designated uterus, cervix and bilateral fallopian tubes. The specimen consists of a hysterectomy specimen consisting of uterus, cervix and attached left fallopian tube and detached right fallopian tube. The uterus with cervix weighs 93 gm and measures 10 x 6 x 4 cm. The serosal surface is smooth. The ectocervical mucosa is unremarkable. The external os is oval in contour. The endocervical canal measures 3.5 cm in length and the endocervical mucosa is unremarkable. Sections of the cervix reveal multiple cysts filled with mucoid material. The triangular endometrial cavity measures 4.5 cm in length and 3.0 cm in width. The endometrium is schwartz, glistening and measures up to 0.3 cm in thickness. Sections of the uterine wall do not reveal any mass lesions and measures up to 2.0 cm in thickness. Right fallopian tube measures 6.5 cm in length and 0.5 cm in diameter. Fimbrial end is identified. Sections reveal unremarkable cut surfaces. Left fallopian tube is similar in appearance to the right and measures 6.0 cm in length and 0.6 cm in diameter. Benzol Operator sections are submitted in 8 cassettes as follows: 1 - anterior cervix, 2 - posterior cervix, 3 & 4 - anterior uterine wall, 5 & 6 - posterior uterine wall, 7 ? right fallopian tube, 8 ? left fallopian tube. /AM:abraham 02/18/22 TC:5 CPT: 43336
[2022-02-17] MEDS: Vasopressin 20 UNITS/ML Vial (12:25)
[2022-02-17] MEDS: Bupivacaine 0.25% 30 ML Vial (13:00)
[2022-02-17] MEDS: Ondansetron 4 MG/2 ML Vial IV (13:11)
--- NOTE | 2022-02-17 13:21 | OP.PCM_ITS ---
Problems Associated Problem List Diagnoses (1) Hypertension: (2) Diabetes: (3) PCOS (polycystic ovarian syndrome): (4) Pulmonary embolism: (5) Abnormal uterine bleeding due to coagulopathy: (6) S/P laparoscopic assisted vaginal hysterectomy (LAVH): Report of Operation Date of Procedure: 02/17/22 Pre-Operative Diagnosis: AUB Post-Operative Diagnosis: same Surgery/Procedure Performed:: LAVHBS Description of Surgical Findings:: moderate scar tissue vesicouterine Surgeon: Joanne Crandall mat tester: Latonya Garcia Type of Anesthesia: General Special Medications: floseal Specimen's removed: uterus, tubes Drains: knott Estimated Blood Loss (mL): 200 Fluids Replaced: crystalloid Description of Procedure: Patient received preoperative antibiotics and SCDs were on preoperatively. Patient was taken back to the operating room and placed in the dorsal lithotomy position. General anesthesia was induced and patient was prepped and draped in normal sterile fashion. Uterine manipulator was placed inside the uterus and Knott catheter placed in the bladder. The umbilicus was grasped with towel clamps and an intraumbilical incision was made after injecting with quarter percent Marcaine and a Veress needle entered into the abdomen confirmed to be intra-abdominal with a low opening pressure. Abdomen was insufflated with CO2 gas and the Veress needle removed and the 5 mm trocar was placed under direct visualization without complication. Right and left lower quadrants were transilluminated and injected with quarter percent Marcaine and 5 mm ports placed under direct visualization. Pelvis was well visualized see operative findings for additional information. Bilateral fallopian tubes were identified and transected with the LigaSure device across the mesosalpinx to the level of the utero-ovarian ligament which was also transected with the LigaSure device. The broad ligament was opened up by transecting the round ligament bilaterally and skeletonizing the uterine vessels bilaterally and creating a bladder flap using the LigaSure device. The uterine arteries were transected bilaterally with good visualization of the bladder and the ureters were seen to be inferior lateral to the operative area. Attention was then paid to the vaginal portion of the procedure and the cervix was grasped with Taj clamps and circumferenti ally injected with dilute vasopressin. A circumferential incision was made and the vaginal mucosa was mobilized off posteriorly and the cul-de-sac entered into sharply and a longneck speculum placed. The anterior cul-de-sac was then identified and entered into sharply. The uterosacral ligaments were clamped cut and suture ligated with 0 Monocryl bilaterally followed by the cardinal ligaments which were clamped cut and suture ligated bilaterally with 0 Monocryl. The uterus serially descended and was removed without difficulty. Pelvic sidewall pedicles were checked and noted to have excellent hemostasis. The vaginal mucosa was reapproximated incorporating the posterior peritoneum. This was reapproximated using 0 Vicryl [id number] sutures. Excellent hemostasis was noted. The pelvis and cul-de-sac were well visualized and no significant active bleeding noted but some raw areas were seen on the peritoneum and therefore floseal was applied. Pressure was taken down and the areas visualized and noted of excellent hemostasis. All ports were removed under direct visualization without complication and the abdomen was desufflated of air. The instruments were removed from the abdomen and the vaginal sweep was negative. Port sites on the abdomen were closed with 4-0 Monocryl interrupted sutures and Steri's and windows were applied. She was awoken and taken recovery in stable condition. Grafts/Implants Used: none Complications none Admit VTE Documentation VTE Present on Admission: No VTE Mechan Device Prophylaxis: SCD's VTE Pharm Prophylaxis ordered?: Yes Procedures Urinary/Genital [id number]: [id number] LAVH+BS/O <250gr Uterus
--- NOTE | 2022-02-17 13:23 | PCM.DC ---
Discharge Instructions Diet Discharge Diet: No restrictions Activity May resume sexual activity in: 6 weeks Weight Bearing Status: Full weight bearing Dressing / Incision Call your doctor if your incision/area has: Continuous Slow Oozing, Sudden Increased Bleeding, Increased Pain/ Swelling, Increased Redness and Foul Smelling Discharge Call your doctor if you observe: Fever of 101 or Higher, Using more than 1 pad per hour, Shortness of breath, Chest pain and Uncontrolled pain Suture Line Care: Avoid Pulling/Pushing and Avoid Pinching/Bending Remove Dressing in: 1 week (if present) Cleanse incision/area with: Soap & Water and Keep Dressing Clean & Dry Follow Up Care Please Follow Up With: Joanne Crandall MD When: Call to make an appointment with your doctor for a postop visit in 2 and 6 weeks. Test Results: Test results from this visit will be discussed in further detail at your follow-up appointment, if applicable. Discharge Plan Admission Attending Provider: Joanne Crandall Primary Care Provider: Ness Daniels NP Discharge Orders/Prescriptions Prescriptions: New oxycodone-acetaminophen [Percocet] 5-325 mg tablet 1 tab PO Q6H PRN (Reason: pain) 7 Days Qty: 20 0RF Continued epinephrine [EpiPen] 0.3 mg/0.3 mL auto-injector 0.3 mg IM ONCE Rx Instructions: mastocytosis esomeprazole magnesium [Nexium] 20 mg capsule,delayed release(DR/EC) 20 mg PO QDAY zinc 50 mg tablet 50 mg PO DAILY cholecalciferol (vitamin D3) 2,000 unit tablet 2,000 unit PO DAILY red yeast rice 600 mg capsule 600 mg PO DAILY Adult Probiotic 3 billion cell capsule 3,000 mmu cells PO DAILY Rx Instructions: administer with a meal magnesium oxide 500 mg capsule 500 mg PO DAILY losartan 50 mg tablet 100 mg PO DAILY Eliquis 5 mg tablet 5 mg PO DAILY metformin 1,000 mg tablet 1,000 mg PO BID Zyrtec 10 MG capsule 10 mg PO DAILY aspirin 81 mg tablet,delayed release (DR/EC) 81 mg PO DAILY coenzyme Q10 100 mg Capsule 100 mg PO DAILY niacin 500 mg tablet extended release 500 mg PO DAILY vitamin E acetate 134 mg (200 unit) Capsule 180 mg PO DAILY Se--19 29 mg iron- 1 mg tablet 1 tab PO DAILY Label Comments: TAKE 1 TABLET BY MOUTH ONCE DAILY Discontinued norethindrone acetate 5 mg tablet See Rx Instructions .ROUTE .COMPLEX Qty: 12 0RF Dose Instruction: TAKE 1 TABLET BY MOUTH TWICE DAILY FOR 7 DAYS THEN TAKE ONE TABLET ONCE DAILY UNTIL GONE Rx Instructions: TAKE 1 TABLET BY MOUTH TWICE DAILY FOR 7 DAYS THEN TAKE ONE TABLET ONCE DAILY UNTIL GONE Other Ambulatory Orders: 12 Lead EKG (Routine) Location: None Selected Ordered By: Dr. Joanne Crandall Referrals / Follow Up: Ness Daniels ADVERTISING MANAGER, ADVERTISING MANAGER-C [Primary Care Provider] - Disposition Disposition (needs filled in before D/C Order can be placed): Home, Self Care
[2022-02-17 15:01] LABS: Bedside Glucose 156 mg/dL (74-106)
[2022-02-17] MEDS: oxyCODONE 5 MG Tablet PO (15:51)
[2022-02-17] MEDS: Insulin Lispro 100 UNIT/ML INSULN.PEN SC ×2 (15:59→23:10)
[2022-02-17 16:26] LABS: Bedside Glucose 168 mg/dL (74-106)
[2022-02-17] MEDS: Ketorolac 30 MG/ML Syringe IV ×2 (17:45→23:11)
[2022-02-17] MEDS: Docusate Sodium 100 MG Capsule PO (23:10)
[2022-02-17 23:41] LABS: Bedside Glucose 169 mg/dL (74-106)
[2022-02-18 03:14] VITALS: BP 102/65; PULSE 88; RESP 16; TEMP 36.7; O2SAT 98
[2022-02-18] MEDS: Acetaminophen 500 MG Tablet 1000 MG PO (06:15)
[2022-02-18] MEDS: Ketorolac 30 MG/ML Syringe IV (06:15)
[2022-02-18] MEDS: 0.9% Saline Lock 10 ML Syringe IV (06:16)
[2022-02-18 06:46] LABS: Bedside Glucose 111 mg/dL (74-106)
[2022-02-18 06:57] LABS: Hematocrit 33.4 % (37-47); Hemoglobin 10.4 g/dL (12.0-15.0); Mean Corp Hgb Conc 31.1 g/dL (32-36); Mean Corpuscular Hgb 25.6 pg (27.0-32.0); Mean Corpuscular Volume 82.1 fL (81-99); Mean Platelet Vol. 9.9 fl (6.2-12.0); Platelet Count 341 K/mm3 (150-450); RBC Distribution Width CV 15.2 % (11.6-14.6); RBC Distribution Width SD 45.8 fl (35.1-43.9); Red Blood Count 4.07 M/mm3 (4.2-5.4); White Blood Count 12.2 K/mm3 (4.4-11.0)
[2022-02-18 07:01] VITALS: BP 109/63; PULSE 93; RESP 16; TEMP 36.7; O2SAT 98
[2022-02-18 07:26] VITALS: O2SAT 93
--- NOTE | 2022-02-18 07:43 | PCM.PN.OB ---
Subjective Subjective patient recovering well, denies CP, SOB, N, or V. patient is tolerating adequate po, up to bedside chair. and pain is controlled with oral medications. Knott cath still in place Objective Data Objective Data Vital Signs: Vital Signs Temp Pulse Resp BP Pulse Ox O2 Del Method O2 Flow Rate 98.0 F 93 16 109/63 98 Room Air 2 02/18/22 07:01 02/18/22 07:01 02/18/22 07:01 02/18/22 07:01 02/18/22 07:01 02/18/22 07:01 02/17/22 23:14 Oxygen Flow Rate (L/min) 2 Oxygen Delivery Method Room Air Weight: 282 lb 3.067 oz Body Mass Index (BMI) 49.9 Intake & Output: Intake and Output for Last 24 Hours 02/16/22 02/17/22 02/18/22 23:59 23:59 23:59 Intake Total 1019 / 1019 1226 / 1226 Output Total 3000 / 3000 Balance -1980 / -1980 1226 / 1226 Lab / Micro Data Result Diagrams: 02/18/22 06:35 02/12/22 11:32 Labs: Laboratory Results - last 24 hr 02/17/22 10:03: Urine Test Negative 02/17/22 10:44: POC Glucose 144 H 02/17/22 14:43: POC Glucose 156 H 02/17/22 15:56: POC Glucose 168 H 02/17/22 22:50: POC Glucose 169 H 02/18/22 06:20: POC Glucose 111 H 02/18/22 06:35: WBC 12.2 H, RBC 4.07 L, Hgb 10.4 L, Hct 33.4 L, MCV 82.1, MCH 25.6 L, MCHC 31.1 L, RDW Std Deviation 45.8 H, RDW Coeff of Kash 15.2 H, Plt Count 341, MPV 9.9 Physical Exam Const alert, oriented x3 and no apparent distress Resp normal respiratory effort GI soft to palpation and non-distended Inspection: incision other (dressing dry and intact) Narrative: Minimal drainage on peripad Bladder / Kidney Exam: catheter in place Assessment & Plan (1) S/P laparoscopic assisted vaginal hysterectomy (LAVH): PLAN: Plan patient is s/p LAVH BS POD 1 1. routine ERAS protocol postop care- increase ambulation, encourage oral intake and oral control of pain. lovenox and scds for dvt prophylaxis, patient stable for discharge to home. 2. all vitals and labs stable 3. remove knott cath.
[2022-02-18] MEDS: Pantoprazole Sodium 20 MG Tablet PO (08:16)
[2022-02-18] MEDS: Niacin SA 500 MG Tablet PO (08:16)
[2022-02-18] MEDS: Docusate Sodium 100 MG Capsule PO (08:16)
[2022-02-18] MEDS: Loratadine 10 MG Tablet PO (08:16)
[2022-02-18] MEDS: metFORMIN HCl 1,000 MG Tablet 1000 MG PO (08:16)
[2022-02-18] MEDS: Aspirin E.C. 81 MG Tablet PO (08:16)
[2022-02-18] MEDS: Losartan Potassium 100 MG Tablet PO (08:16)
[2022-02-18] MEDS: APIXABAN 5 MG TABLET PO (08:17)
[2022-02-18 09:55] VITALS: BP 117/69; PULSE 101; RESP 16; TEMP 37; O2SAT 97
--- NOTE | 2022-02-18 10:40 | PHA.DC.MC ---
Pharmacy Service has performed discharge medication reconciliation and counseling for this patient. 1. PERCOCET 5/325MG 1T PO Q6H PRN PAIN The patient's discharge medication list was reviewed for discrepancies and discrepancies were resolved. Home Medications epinephrine 0.3 mg/0.3 mL injection, auto-injector (EpiPen) 0.3 mg IM ONCE 02/14/18 esomeprazole magnesium 20 mg capsule,delayed release (Nexium) 20 mg PO QDAY 02/14/18 cetirizine 10 mg capsule (Zyrtec) 10 mg PO DAILY 04/08/18 red yeast rice 600 mg capsule 600 mg PO DAILY 01/27/19 cholecalciferol (vitamin D3) 50 mcg (2,000 unit) tablet 2,000 unit PO DAILY 08/14/19 zinc 50 mg tablet 50 mg PO DAILY 08/14/19 lactobacillus combination no.8 3 billion cell capsule (Adult Probiotic) 3,000 mmu cells PO DAILY 08/15/20 magnesium oxide 500 mg capsule 500 mg PO DAILY 08/15/20 apixaban 5 mg tablet (Eliquis) 5 mg PO DAILY 07/16/21 losartan 50 mg tablet 100 mg PO DAILY 07/16/21 metformin 1,000 mg tablet 1,000 mg PO BID 07/16/21 aspirin 81 mg tablet,delayed release 81 mg PO DAILY 02/10/22 coenzyme Q10 100 mg capsule 100 mg PO DAILY 02/10/22 niacin 500 mg tablet,extended release 500 mg PO DAILY 02/10/22 vitamins no.119-iron fumarate 29 mg-folic acid 1 mg tablet (Se-Kathy-19) 1 tab PO DAILY 02/10/22 vitamin E acetate 134 mg (200 unit) capsule 180 mg PO DAILY 02/10/22 oxycodone-acetaminophen 5 mg-325 mg tablet (Percocet) 1 tab PO Q6H PRN pain 7 days #20 tabs 02/17/22 The patient was counseled on the following discharge medications and changes in medications for homegoing were reviewed. The Reason for Use, instructions for use, and potential side effects were reviewed for all new medications. The patient's questions regarding all of their medications were answered. The patient was able to verbally demonstrate an understanding of their discharge medications. Patient counseled by pharmacy picking techYuan.
== END 2022-02-18 10:25 | disposition home or self-care (01) ==
LOC: SDC 13:34 → MS3 02-18 07:31
PROVIDERS: Anesthesiology; Admitting Provider Obstetrics & Gynecology; PCP Nurse Practitioner Family; Referring Provider Obstetrics & Gynecology; Visit Provider Obstetrics & Gynecology
PROC: 0UT9FZZ Resection of Uterus, Via Natural or Artificial Opening With Percutaneous Endoscopic Assistance (ICD-10-PCS; CPT 58552; principal; 2022-02-17 11:30)
DX: D68.9 Coagulation defect, unspecified (principal); E11.9 Type 2 diabetes mellitus without complications; N93.9 Abnormal uterine and vaginal bleeding, unspecified; Z86.711 Personal history of pulmonary embolism; Z86.16 Personal history of COVID-19; Z79.84 Long term (current) use of oral hypoglycemic drugs; E28.2 Polycystic ovarian syndrome; I10 Essential (primary) hypertension; Z79.899 Other long term (current) drug therapy; Z79.01 Long term (current) use of anticoagulants; K21.9 Gastro-esophageal reflux disease without esophagitis; L30.9 Dermatitis, unspecified; K76.0 Fatty (change of) liver, not elsewhere classified; L71.9 Rosacea, unspecified
CPT/HCPCS: 58552; 00944; 36415; 80053; 81025; 82248; 82962; 83735; 85025; 85027; 85610; 85730; 86850; 86900; 86901; 88307; 93005; 96374; 96376; 99218; J7120; A4216; G0378; J2405

== ENCOUNTER → 2022-06-15 | Outpatient (CLI) | payer OTHER, SELFPAY ==
--- NOTE | 2022-06-15 12:41 | CT_ITS ---
STUDY: CTA CHEST REASON FOR EXAM: Female, 41 years old. PE, REEVALUATION RADIATION DOSAGE (If Supplied By Facility): CTDIvol = ( 15.04 ) mGy, DLP = ( 472.57 ) mGycm TECHNIQUE: The examination was performed with the intravenous administration of IV 100mL Isovue-370. Post-processing of the angiographic images was performed, with multiplanar reformation and 3D reconstruction. Individualized dose optimization techniques were used for this CT. COMPARISON: None. FINDINGS: A right-sided Port-A-Cath is seen with the tip in the superior vena cava. Normal enhancement of the main pulmonary artery and right and left pulmonary arteries. Normal enhancement of the bilateral peripheral pulmonary arteries. There is no demonstrated pulmonary embolism. Normal thoracic aorta and visualized great vessels. There is no demonstrated aortic dissection. Normal heart and pericardium. Normal mediastinum. Normal hilar regions. Normal visualized trachea and bronchi. The lungs are well expanded. Normal pulmonary parenchyma. Normal pleura. Normal chest wall structures. There are degenerative changes of thoracic spine. Diffuse fatty infiltration of the liver. Small hiatal hernia. CT/CTA Chest W/WO Contrast IMPRESSION: No evidence of pulmonary emboli at this time. Electronically Signed: Dale Stewart MD at 15:16 EST ,
== END | disposition home or self-care (01) ==
LOC: CT 12:39
PROVIDERS: PCP Nurse Practitioner Family; Referring Provider Nurse Practitioner Family; Visit Provider Nurse Practitioner Family
DX: I26.99 Other pulmonary embolism without acute cor pulmonale (principal)
CPT/HCPCS: 71275; Q9967

== ENCOUNTER → 2022-09-22 | Outpatient (CLI) | payer BC, SELFPAY ==
[2022-09-22 12:42] LABS: ALB/GLOB Ratio 0.9 RATIO (0.9-2.4); AST(SGOT) 46 U/L (15-37); Alanine Aminotransfer ALT/SGPT 56 U/L (13-56); Albumin, Serum 3.4 g/dL (3.2-5.0); Alkaline Phosphatase 78 U/L (45-117); Anion Gap 6 (5-15); BUN 12 mg/dL (7-18); BUN/Creat Ratio 13.6 RATIO (10-20); Calcium,Total 9.3 mg/dL (8.5-10.1); Chloride 106 mmol/L (98-107); Creatinine, Serum 0.88 mg/dL (0.55-1.02); EST Glomerular Filtration Rate 75 mL/min (>60); Est Glom Filt Rate - Afr Amer 91 mL/min (>60); Globulin 3.9 g/dL (2.2-4.2); Glucose 115 mg/dL (74-106); Potassium 4.1 mmol/L (3.5-5.1); Protein, Total 7.3 g/dL (6.4-8.2); Sodium Level 140 mmol/L (136-145)
[2022-09-22 19:42] LABS: Xtra Tube EP Lab EXTRA TUBE
== END | disposition home or self-care (01) ==
LOC: PAVLAB 11:17
PROVIDERS: PCP Nurse Practitioner Family; Referring Provider Obstetrics & Gynecology; Visit Provider Obstetrics & Gynecology
DX: E66.9 Obesity, unspecified (principal); E11.9 Type 2 diabetes mellitus without complications; I10 Essential (primary) hypertension
CPT/HCPCS: 36415; 80053

== ENCOUNTER → 2022-10-08 | Outpatient (CLI) | payer BC, SELFPAY ==
--- NOTE | 2022-10-08 11:55 | BI_ITS ---
MAMMOGRAPHY - BILATERAL SCREENING REASON FOR EXAM: Female, 41 years old. Routine annual screening examination. PERTINENT HISTORY: Grandmother with breast cancer. TECHNIQUE: Digital bilateral breast venus (3D mammographic acquisition) in the CC and MLO projections. 2-D mediolateral oblique (MLO) and craniocaudad (CC) views of both breasts were obtained. CAD: Full Field Digital Mammography with Computer Added Detection was performed. COMPARISON: Comparison is made with prior study February 05, 2020 and September 02, 2021. FINDINGS: Breast Composition: There are scattered areas of fibroglandular density. There are no dominant masses or suspicious calcifications. No other significant abnormalities are identified. There has been no significant change since the prior study. BI/SCRN MAMM (CAD)W/VENUS BILAT IMPRESSION: Stable bilateral screening mammogram. Yearly follow-up mammogram recommended. (A) ASSESSMENT CATEGORY: BIRADS Category 1: Negative. A letter regarding these results will be sent to the patient by the facility within 30 days. Approximately 10% of breast cancers are not detected by mammography. A normal mammogram should not delay biopsy of a clinically suspicious abnormality. [id number] Electronically Signed: Dale Stewart MD at 13:55 EDT ,
== END | disposition home or self-care (01) ==
LOC: OPBI 11:54
PROVIDERS: PCP Nurse Practitioner Family; Visit Provider Obstetrics & Gynecology
DX: Z12.31 Encounter for screening mammogram for malignant neoplasm of breast (principal)
CPT/HCPCS: 77063; 77067

== ENCOUNTER → 2023-09-16 | Outpatient (CLI) | payer OTHER, SELFPAY ==
[2023-09-16 11:04] LABS: ALB/GLOB Ratio 0.9 RATIO (0.9-2.4); AST(SGOT) 21 U/L (15-37); Alanine Aminotransfer ALT/SGPT 29 U/L (13-56); Albumin, Serum 3.6 g/dL (3.2-5.0); Alkaline Phosphatase 77 U/L (45-117); Anion Gap 6 (5-15); BUN 15 mg/dL (7-18); BUN/Creat Ratio 16.3 RATIO (10-20); Calcium,Total 9.1 mg/dL (8.5-10.1); Chloride 104 mmol/L (98-107); Cholesterol 131 mg/dL (200); Creatinine, Serum 0.92 mg/dL (0.55-1.02); EST Glomerular Filtration Rate 71 mL/min (>60); Est Glom Filt Rate - Afr Amer 86 mL/min (>60); Globulin 3.9 g/dL (2.2-4.2); Glucose 120 mg/dL (74-106); High Density Lipoprotein 38 mg/dL; Potassium 4.2 mmol/L (3.5-5.1); Protein, Total 7.5 g/dL (6.4-8.2); Sodium Level 140 mmol/L (136-145); Thyroid Stim Hormone (TSH) 2.12 uIU/mL (0.358-3.74); Triglycerides 276 mg/dL; Very Low Density Lipoprotein 55 mg/dL (5-40)
[2023-09-16 11:14] LABS: Microalbumin,Random Urine 11.7 mg/L (NO RANGE EST.); Microalbumin:Creatinine Ratio 4.9 mg/g CRE (<30 mg/g CRE)
--- OUTSIDE RECORDS SUMMARY | 2023-09-16 17:13 | XMS RPT_ITS | CCD ---
Author Name Unknown Address [address] [place] [address] Organization [facility] Care Team Providers Care Admin Assistant Name Role Phone Evette Fontana Unavailable Unavailable Evette Fontana Unavailable Unavailable NO REFERRING DR Unavailable Unavailable Evette Fontana Unavailable Unavailable EVETTE FONTANA Unavailable Unavailable EVETTE FONTANA Unavailable Unavailable Fast, Ness A Unavailable Hilary Saunders Unavailable Unavailable Miguel Angel, Rosemarie Unavailable Unavailable Unavailable Unavailable Fast DO, Ness A Unavailable Hilary Saunders Unavailable Unavailable Miguel Angel, Rosemarie Unavailable Unavailable Unavailable Unavailable Mendez, Ness K Primary Care Provider [phone] MENDEZ, NESS Consulting Unavailable MENDEZ, NESS Attending Unavailable MENDEZ, NESS Admitting Unavailable MENDEZ, NESS Primary Care Unavailable PROVIDER, UNKNOWN Consulting Unavailable MENDEZ, NESS Primary Care Unavailable MENDEZ, NESS Consulting Unavailable MENDEZ, NESS Attending Unavailable MENDEZ, NESS Admitting Unavailable PROVIDER, UNKNOWN Consulting Unavailable MENDEZ, NESS Primary Care Unavailable MENDEZ, NESS Consulting Unavailable MENDEZ, NESS Attending Unavailable MENDEZ, NESS Admitting Unavailable PROVIDER, UNKNOWN Consulting Unavailable MENDEZ, NESS Primary Care Unavailable MENDEZ, NESS Consulting Unavailable MENDEZ, NESS Attending Unavailable MENDEZ, NESS Admitting Unavailable PROVIDER, UNKNOWN Consulting Unavailable MENDEZ, NESS Consulting Unavailable MENDEZ, NESS Attending Unavailable MENDEZ, NESS Admitting Unavailable MENDEZ, NESS Primary Care Unavailable PROVIDER, UNKNOWN Consulting Unavailable MASCI, JAYJAY A Referring Unavailable MENDEZ, NESS K Primary Care Unavailable MASCI, JAYJAY A Attending Unavailable MASCI, JAYJAY A Referring Unavailable MENDEZ, NESS K Primary Care Unavailable MENDEZ, NESS K Primary Care Unavailable Allergies Allergy Classification Reported Allergen(s) Allergy Type Date of Onset Reaction(s) Facility (5 sources) Lisinopril; Translations: [LISINOPRIL] Drug Allergy 02-06-[address] [facility] Medications Completed/Discontinued Medications Medication Drug Class(es) Dates Sig (Normalized) Sig (Original) [id number] 200 actuat albuterol 0.09 mg/actuat metered dose inhaler (2 sources) beta2-Adrenergic Agonist Start: 05-13-2015 End: 06-11-2015 PROAIR HFA, 108 (90 Base)MCG/ACT (Inhalation Aerosol Solution) 2 (two) Aerosol Soln puffs tid prn for 0 days Quantity: 1 {Inhaler} Refills: 1 Ordered: 11-Jun-2015 Tomasa Drew CMA Start : 13-May-2015 End : 11-Jun-2015 Inactive Problems Active Problems Problem Classification Problem Date Documented Da te Episodic/Chronic Acute bronchitis (4 sources) Acute bronchitis; Translations: [Acute bronchitis] 10-16-2015 Episodic Coagulation and hemorrhagic disorders (4 sources) Hereditary factor XI deficiency disease; 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] Onset: 03-11-2023 03-08-2023 Chronic Conditions associated with dizziness or vertigo (4 sources) Vertigo; Translations: [Vertigo] 10-16-2015 Episodic Past or Other Problems Problem Classification Problem Date Documented Da te Episodic/Chronic Deficiency and other anemia (8 sources) Anemia; Translations: [Anemia] Onset: 03-27-2014 10-21-2015 Episodic Headache; including migraine (8 sources) Headache; Translations: [Headache] Onset: 04-15-2017 Episodic Mycoses (2 sources) Candidiasis of mouth; Translations: [Thrush] Resolved: 10-16-2015 10-16-2015 Episodic Neoplasms of unspecified nature or uncertain behavior (5 sources) Mast cell disorder; Translations: [Other mast cell neoplasms of uncertain behavior] Onset: 12-16-2016 12-16-2016 Episodic Other disorders of stomach and duodenum (1 source) Disease of stomach and duodenum, unspecified; Translations: [DISEASE STOMACH T DUOD] Onset: 01-12-2017 Episodic Other screening for suspected conditions (not mental disorders or infectious disease) (5 sources) Raised TSH level; Translations: [Other specified abnormal findings of blood chemistry] Onset: 03-27-2014 06-30-2021 Episodic Screening and history of mental health and substance abuse codes (4 sources) H/O: depression; Translations: [Personal history of other mental and behavioral disorders] Onset: 03-22-2014 06-30-2021 Episodic Unclassified (4 sources) Gestational diabetes Unclassified (2 sources) 35 weeks gestation of Unclassified (2 sources) SINUSITIS, ACUTE NOS (461.9) Unclassified (2 sources) Pregnancies (); Translations: [Pregnancies ()] 10-16-2015 Results Test Name Value Interpretation Reference Range Facil ity Vital Signs Date Time Vital Sign Value Performing Clinician Facility 10-16-2015 13:59-0400 BMI (Body Mass Index) 45.91 kg/m2 Hilary Saunders [facility] Work Phone: 10-16-2015 13:59-0400 Body Temperature 98 [degF] Hilary Saunders [facility] Work Phone: Encounters Encounter Date Encounter Type Care Provider Facility Start: 03-27-2023 Telephone encounter Jayjay mercado DO Work Phone: Hematology/Oncology Procedures Date Procedure Procedure Detail Performing Clinician Start: 01-12-2017 Colonoscopy flx dx w /collj spec when pfrmd Evette Fontana Start: 01-12-2017 EGD BIOPSY SINGLE/MULTIP Evette Fontana Start: 01-12-2017 Colonoscopy Jayjay Amaral DO Work Phone: Start: 05-13-2015 End: 05-13-2015 Spmtry w/vc expiratory nabeel w/wo mxml vol vntj _ Ness A Fast Work Phone: Plan of Treatment Date Care Activity Detail Author Start: 01-12-[address] [facility] Start: 01-12-2027 COLORECTAL CANCER SCREENING COLORECTAL CANCER SCREENING [facility] Start: 03-08-2023 End: 05-08-2023 aPTT in Platelet poor plasma by Coagulation assay ACTIVATED PTT Lab Routine 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) Expected: 03/08/2023, Expires: 05/08/2023 [facility] Work Phone: Payers Date Payer Category Payer Unknown 2014 Unknown [id number] 2014 Unknown [id number] 1981 Unknown [id number] 1980 Unknown [id number] 1981 Unknown [id number] 1981 Unknown [id number] 1981 Unknown [id number] [id number] Unknown [id number] Social History Date Type Detail Facility Alcohol Use: [facility] Work Phone: Start: 02-06-2020 End: 03-05-2023 Caffeine Use Caffeine Use [facility] Work Phone: Tobacco use: Tobacco use: [facility] Work Phone: Alcohol Use: Alcohol Use: [facility] Work Phone: Tobacco use: Tobacco use: [facility] Work Phone: Tobacco smoking stat [facility] Never smoked tobacco [facility] Work Phone: Start: 02-06-2020 End: 03-05-2023 Alcohol intake Current non-drinker of alcohol (finding) [facility] Start: 1980 Sex Assigned At Not on file [facility] Start: 02-06-2020 End: 03-05-[address] [facility] Adult Depression Screening Assessment [address] [facility] Clinical Notes 03-22-2014 to 03-29-2023 Telephone Encounter - Kylah Lewis LPN - 03/29/2023 9:07 AM EDTTelephone Encounter - Jayjay Amaral DO - 03/27/2023 12:31 PM EDTTelephone Encounter - Nakia Kim LPN - 03/09/2023 9:37 AM EDT Note Date & Type Note Facility 03-29-2023 Miscellaneous Notes Formattin g of this note might be different from the original. Pt. Notified of lab results, voiced understanding. Notes and lab results. Kylah Lewis LPN Can let her know that the repeat testing for factor XI showed it to be normal. Her fibrinogen is still mildly elevated. This is not a congenital or hereditary issue. Typically it is caused by underlying inflammation. In her case, she has been diagnosed with PCOS in the past. That condition in turn can lead to fatty liver which she was observed to have on the CT of the chest done at [facility] 06/2022. Another consideration may be undiagnosed sleep apnea. I recommend she follow-up with her PCP regarding management of these issues. Please fax a copy of this note to her PCP as well as the results of the recent lab work. Jayjay Amaral DO documented in this encounter [facility] 03-09-2023 Miscellaneous Notes Formattin g of this note might be different from the original. lab apt in two days, added these labs to the apt notes. Nakia Kim LPN Thank you. Ask her to come back for additional lab work filed under this encounter. Jayjay Amaral DO Additional labs received from [facility], scanned into chart. Nakia Kim LPN documented in this encounter [facility] 03-05-2023 Note HNO ID: [id number] Author: Jayjay Amaral DO Service: ? Author Type: Physician Type: Progress Notes Filed: 03/05/2023 2:18 PM Note Text: Patient referred by Ness Simms CNP for abnormal labs. The impression and plan will be communicated by way of the shared electronic record or faxed under separate cover letter. HPI: The patient is a 42-year-old female with a past medical history significant for hypertension, iron deficiency anemia, cutaneous mastocytosis and PCOS. Seen previously for rule out of systemic mastocytosis and ALEYDA. Diagnosed with DVT/PE when had Covid about 05/2021. Wasn't hospitalized. Was down for 8 days at home. Went to [facility] day 7 for cough/chest pain. CT chest by her report PE in both lungs. US legs negative. Was apixaban for a year. Stopped 05/2022. CTA of the chest 06/15/[address] [facility]. No evidence of pulmonary embolism. Diffuse fatty infiltration of the liver was observed. Father had 2 strokes--ages 63 and 65. Diagnosed with heterozygous prothrombin gene mutation. Patient was told needed to be tested for prothrombin gene mutation. Had labs at [facility]--some are in Epic. Had hysterectomy 02/2022 due to menorrhagia when on apixaban. Annual visit to Dr. Cash. Mastocytosis controlled. PAST MEDICAL HISTORY Diagnosis Date Anemia complicating 03/27/2014 Breast disorder Cutaneous mastocytosis Heartburn Hypertension 04/15/2017 Infertility Mental disorder diagnosed 1993 PCOS (polycystic ovarian syndrome) Psoriasis Rosacea Staph infection not MRSA Varicosities right thigh PAST SURGICAL HISTORY Procedure Laterality Date CARPAL TUNNEL 11/23/2012 right hand CARPAL TUNNEL Left 04/2015 SECTION HX 11/05/2014 EXT HYSTERECTOMY,W/PARTIAL VAGINECTO 02/2022 HYSTEROSCOPY DIAGNOSTIC LAPAROSCOPY DIAGNOSTIC TONSILLECTOMY AND ADENOIDECTOMY ALLERGIES Allergen Reactions Lisinopril Cough Current Outpatient Medications Medication Sig aspirin, enteric coated (ASPIRIN, ENTERIC COATED) 81 mg EC tablet Take 81 mg by mouth once daily. TRULICITY 3 mg/0.5 mL pen injector Inject 4.5 mg subcutaneously one time a week. rosuvastatin (CRESTOR) 10 mg tablet Take 10 mg by mouth once daily. losartan (COZAAR) 100 mg tablet Take 100 mg by mouth once daily. esomeprazole magnesium (NEXIUM 24HR) 22.3 mg cpDR Take 1 capsule by mouth once daily. cetirizine (ZYRTEC) 10 mg tablet Take 10 mg by mouth once daily. EPINEPHrine (EPIPEN) 0.3 mg/0.3 mL auto-injector Inject 0.3 mg subcutaneously as directed. naproxen sodium (ALEVE) 220 mg tablet Take 220 mg by mouth as needed. labetalol (TRANDATE) 100 mg tablet Take 100 mg by mouth twice daily. NIACIN ORAL Take 1 tablet by mouth once daily. vit calc,iron,folic ( VITAMIN ORAL) Take 1 tablet by mouth once daily. vitamin b complex tab Take 1 tablet by mouth once daily. cholecalciferol, vitamin D3, (VITAMIN D3 ORAL) Take 2 tablets by mouth once daily. ubidecarenone (COENZYME Q10 ORAL) Take 1 tablet by mouth once daily. RED YEAST RICE ORAL Take 1 tablet by mouth once daily. No current facility-administered medications for this visit. Social History Tobacco Use Smoking status: Never Smokeless tobacco: Never Vaping Use Vaping Use: Never used Substance Use Topics Alcohol use: No Drug use: No Family History Problem Relation Age of Onset Asthma Mother Heart Mother COPD Mother Stroke Father Psychiatry Sister bipolar, ADHD. ETOH syndrome Asthma Sister Skin Cancer Maternal Grandmother Breast Cancer Maternal Grandmother 80 DVT Maternal Grandmother during breast ca Cancer Maternal Grandfather Lung cancer No Known Problems Paternal Grandmother ROS: Constitutional: No fever. No drenching night sweats. Normal appetite. No unexplained weight loss. No significant fatigue. Neuro: No recent LORENZO, vertigo, dizziness or imbalance. CTS left hand--occasional am numbness. HEENT: No recent change in voice, vision or hearing. Resp: Coughing for about a month. No wheeze of hemoptysis. No shortness of breath at rest or with exertion. CVS: No exertional chest pain, PND or orthopnea. No extremity swelling/edema. GI: No dysgeusia. No symptoms of stomatitis. No dysphagia or odynophagia. No reflux, n/v, change in bowel habits. No abdominal pain, bloating or distension. No black or bloody stools. : No dysuria or gross hematuria. No symptoms of bladder outlet obstruction. Endo: No hot flashes. No polyuria or polydipsia. No heat or cold intolerance. Musculoskeletal: No bone, back, joint and muscular pain. Derm: See HPI. Heme: No unusual bleeding and unexplained bruising. Psych: Normal mood. PHYSICAL EXAM: Vitals: Blood pressure 139/83, pulse 99, temperature 37.5 ?C (99.5 ?F), height 159.7 cm (5' 2.89 ), weight 121.8 kg (268 lb 8 oz), last menstrual period 07/02/2017, SpO2 98 %, unknown if currently . Well-appearing and in no acute (more content not included)... [facility] 02-24-2023 Miscellaneous Notes Formattin g of this note might be different from the original. Pt returned call and scheduled as directed 1ST ATTEMPT TO CONTACT PATIENT FOR FIRST AVAILABLE NEW PATIENT APPOINTMENT WITH DR AMARAL. DX: FACTOR IX DEFICIENCY, HYPERFIBRINOGENEMIA, HISTORY OF DVT REF PROVIDER: NESS SIMMS documented in this encounter [facility] 12-16-2022 Miscellaneous Notes Formattin g of this note might be different from the original. Patient is aware and I also faxed a copy of this note to PCP office. Althea Santos LPN Vascular medicine. PCP can make referral. Jayjay Amaral DO Last OV here was 02/06/2020, for ALEYDA. Patient is being referred by PCP for family history of genetic clotting disorder. Patient has history of DVT and PE 2020, 1 year of Eliquis. Records placed in Dr. Amaral's mailbox for review. Althea Santos LPN PCP office called and stated they are faxing information to [email or web address]. Pt called in again to schedule. Checked with nurses and still have not received fax from PCP's office. Informed pt to reach out to her PCP's office and have them fax it again. Pt stated her understanding Informed pt. We have not received anything from her PCP as yet, given fax number with instructions for labs, Office notes, testing . Kylah Rodriguez LPN Patient states PCP was to send a referral for Blood Clot Disorder. Please advise. documented in this encounter [facility] documented as of this encounter (statuses as of 12/17/2022) [facility] History of Past illness Narrative* Problem Noted Date Diagnosed Date Resolved Date Obesity complicating 03/22/2014 04/15/2017 Overview: 03/22/14 - needs early GCT at next visit, declines today - KJ Patient requested diagnostic testing 03/22/2014 04/15/2017 Overview: 03/22/14 - desires NT, needs ordered once EDC determined - KJ Family history of breast cancer 05/17/2013 03/22/2014 Fibrocystic breast changes 05/17/2013 0 03/22/2014 Oligomenorrhea 12/19/2012 03/22/2014 Tension headache 09/15/2011 03/22/2014 documented as of this encounter (statuses as of 02/25/2023) [facility] History of Past illness Narrative* Problem Noted Date Diagnosed Date Resolved Date Obesity complicating 03/22/2014 04/15/2017 Overview: 03/22/14 - needs early GCT at next visit, declines today - KJ Patient requested diagnostic testing 03/22/2014 04/15/2017 Overview: 03/22/14 - desires NT, needs ordered once EDC determined - KJ Family history of breast cancer 05/17/2013 03/22/2014 Fibrocystic breast changes 05/17/2013 0 03/22/2014 Oligomenorrhea 12/19/2012 03/22/2014 Tension headache 09/15/2011 03/22/2014 documented as of this encounter (statuses as of 03/09/2023) [facility] History of Past illness Narrative* Problem Noted Date Diagnosed Date Resolved Date Obesity complicating 03/22/2014 04/15/2017 Overview: 03/22/14 - needs early GCT at next visit, declines today - KJ Patient requested diagnostic testing 03/22/2014 04/15/2017 Overview: 03/22/14 - desires NT, needs ordered once EDC determined - KJ Family history of breast cancer 05/17/2013 03/22/2014 Fibrocystic breast changes 05/17/2013 0 03/22/2014 Oligomenorrhea 12/19/2012 03/22/2014 Tension headache 09/15/2011 03/22/2014 documented as of this encounter (statuses as of 03/29/2023) [facility] 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 hypercoagulable state [facility] Name Dates Details How to access health informa tion online Indication:Acute pharyngitis, unspecified etiology Start:16-Oct-2015 Instruction Type:Patient Education How to access health informa tion online - Detail Indication:Acute pharyngitis, unspecified etiology Start:16-Oct-2015 Instruction Type:Patient Education Patient Instructions Indication:Acute pharyngitis, unspecified etiology Start:16-Oct-2015 Instruction Type:Provider Instructions for Treatment How to access health informa tion online Indication:Pharyngitis, acute Start:30-Aug-2015 Instruction Type:Patient Education How to access health informa tion online - Detail Indication:Pharyngitis, acute Start:30-Aug-2015 Instruction Type:Patient Education Patient Instructions Indication:Pharyngitis, acute Start:30-Aug-2015 Instruction Type:Provider Instructions for Treatment How to access health informa tion online Indication:Sinusitis, acute Start:11-Jul-2015 Instruction Type:Patient Education How to access health informa tion online - Detail Indication:Sinusitis, acute Start:11-Jul-2015 Instruction Type:Patient Education Patient Instructions Indication:Sinusitis, acute Start:11-Jul-2015 Instruction Type:Provider Instructions for Treatment How to access health informa tion online Indication:Chronic tension-type headache, not intractable Start:11-Jun-2015 Instruction Type:Patient Education How to access health informa tion online - Detail Indication:Chronic tension-type headache, not intractable Start:11-Jun-2015 Instruction Type:Patient Education Patient Instructions Indication:Chronic tension-type headache, not intractable Start:11-Jun-2015 Instruction Type:Provider Instructions for Treatment How to access health informa tion online Indication:Cough Start:13-May-2015 Instruction Type:Patient Education How to access health informa tion online - Detail Indication:Cough Start:13-May-2015 Instruction Type:Patient Education Patient Instructions Indication:Cough Start:13-May-2015 Instruction Type:Provider Instructions for Treatment Patient Instructions Indication:Benign Essential Hypertension (Renamed from Benign essential HTN) Start:09-Oct-2014 Instruction Type:Provider Instructions for Treatment Patient Instructions Indication:Gestational diabetes Start:28-Aug-2014 Instruction Type:Provider Instructions for Treatment How to access health informa tion online Indication:Benign Essential Hypertension (Renamed from Benign essential HTN) Start:14-Aug-2014 Instruction Type:Patient Education How to access health informa tion online - Detail Indication:Benign Essential Hypertension (Renamed from Benign essential HTN) Start:14-Aug-2014 Instruction Type:Patient Education Patient Instructions Indication:Benign Essential Hypertension (Renamed from Benign essential HTN) Start:14-Aug-2014 Instruction Type:Provider Instructions for Treatment Patient Instructions Indication:Polycystic ovaries Start:29-Sep-2013 Instruction Type:Provider Instructions for Treatment Patient Instructions Indication:Chronic tension-type headache, not intractable Start:01-Sep-2013 Instruction Type:Provider Instructions for Treatment [facility] Work Phone: Summary Purpose Family History No Family History Records FoundUnknown Family Member Name Dates Details Family Members In General Comments:breast and lung cnc er- maternal side Status:Active Father Comments:liviing and arthrit is Status:Active Mother Comments:living - arhtirits Status:Active Paternal Grandfather Comments:brain tumor of unkn own kind- cva and mi Status:Active Unknown Family Member Name Dates Details Family Members In General Comments:breast and lung cnc er- maternal side Status:Active Father Comments:liviing and arthrit is Status:Active Mother Comments:living - arhtirits Status:Active Paternal Grandfather Comments:brain tumor of unkn own kind- cva and mi Status:Active Advance Directives No Advanced Directives Records FoundNo Advanced Directives Records FoundNo Advanced Directives Records FoundNo Advanced Directives Records FoundNo Advanced Directives Records Found Instructions Name Dates Details How to access health informa tion online Indication:Acute pharyngitis, unspecified etiology Start:16-Oct-2015 Instruction Type:Patient Education How to access health informa tion online - Detail Indication:Acute pharyngitis, unspecified etiology Start:16-Oct-2015 Instruction Type:Patient Education Patient Instructions Indication:Acute pharyngitis, unspecified etiology Start:16-Oct-2015 Instruction Type:Provider Instructions for Treatment How to access health informa tion online Indication:Pharyngitis, acute Start:30-Aug-2015 Instruction Type:Patient Education How to access health informa tion online - Detail Indication:Pharyngitis, acute Start:30-Aug-2015 Instruction Type:Patient Education Patient Instructions Indication:Pharyngitis, acute Start:30-Aug-2015 Instruction Type:Provider Instructions for Treatment How to access health informa tion online Indication:Sinusitis, acute Start:11-Jul-2015 Instruction Type:Patient Education How to access health informa tion online - Detail Indication:Sinusitis, acute Start:11-Jul-2015 Instruction Type:Patient Education Patient Instructions Indication:Sinusitis, acute Start:11-Jul-2015 Instruction Type:Provider Instructions for Treatment How to access health informa tion online Indication:Chronic tension-type headache, not intractable Start:11-Jun-2015 Instruction Type:Patient Education How to access health informa tion online - Detail Indication:Chronic tension-type headache, not intractable Start:11-Jun-2015 Instruction Type:Patient Education Patient Instructions Indication:Chronic tension-type headache, not intractable Start:11-Jun-2015 Instruction Type:Provider Instructions for Treatment How to access health informa tion online Indication:Cough Start:13-May-2015 Instruction Type:Patient Education How to access health informa tion online - Detail Indication:Cough Start:13-May-2015 Instruction Type:Patient Education Patient Instructions Indication:Cough Start:13-May-2015 Instruction Type:Provider Instructions for Treatment Patient Instructions Indication:Benign Essential Hypertension (Renamed from Benign essential HTN) Start:09-Oct-2014 Instruction Type:Provider Instructions for Treatment Patient Instructions Indication:Gestational diabetes Start:28-Aug-2014 Instruction Type:Provider Instructions for Treatment How to access health informa tion online Indication:Benign Essential Hypertension (Renamed from Benign essential HTN) Start:14-Aug-2014 Instruction Type:Patient Education How to access health informa tion online - Detail Indication:Benign Essential Hypertension (Renamed from Benign essential HTN) Start:14-Aug-2014 Instruction Type:Patient Education Patient Instructions Indication:Benign Essential Hypertension (Renamed from Benign essential HTN) Start:14-Aug-2014 Instruction Type:Provider Instructions for Treatment Patient Instructions Indication:Polycystic ovaries Start:29-Sep-2013 Instruction Type:Provider Instructions for Treatment Patient Instructions Indication:Chronic tension-type headache, not intractable Start:01-Sep-2013 Instruction Type:Provider Instructions for Treatment Additional Source Comments INFORMATION SOURCE (unrecogn ized section and content) DATE CREATED AUTHOR AUTHOR'S ORGANIZ ATION 12/29/2017 [facility] DATE CREATED AUTHOR AUTHOR'S ORGANIZ ATION 07/11/[address] [facility] DATE CREATED AUTHOR AUTHOR'S ORGANIZ ATION 02/10/2023 [facility] DATE CREATED AUTHOR AUTHOR'S ORGANIZ ATION 04/20/2023 [facility] Source Comments (unrecognize d section and content) In the event this informatio n is protected by the Federal Confidentiality of Alcohol and Drug Abuse Patient Records regulations: The Federal rules restrict any use of the information to criminally investigate or prosecute any alcohol or drug abuse patient.[facility] the event this information is protected by the Federal Confidentiality of Alcohol and Drug Abuse Patient Records regulations: The Federal rules restrict any use of the information to criminally investigate or prosecute any alcohol or drug abuse patient.[facility] the event this information is protected by the Federal Confidentiality of Alcohol and Drug Abuse Patient Records regulations: The Federal rules restrict any use of the information to criminally investigate or prosecute any alcohol or drug abuse patient.[facility] the event this information is protected by the Federal Confidentiality of Alcohol and Drug Abuse Patient Records regulations: The Federal rules restrict any use of the information to criminally investigate or prosecute any alcohol or drug abuse patient.[facility] Reason for Visit (unrecogniz ed section and content) Reason Comments New Patient Reason Comments Results labs received Reason Comments Results Care Teams (unrecognized sec tion and content) Admin Assistant Relationship Specialty Start Date End Date Ness Simms [address] [place] [id number] PCP - General Family Medicine 02/14/19 Admin Assistant Relationship Specialty Start Date End Date Ness Simms [address] [place] [address] PCP - General Family Medicine 02/14/19 Admin Assistant Relationship Specialty Start Date End Date Ness Simms [address] [place] [address] PCP - General Family Medicine 02/14/19 FOR RECORDS PERTAINING TO PATIENTS WHO ARE OR HAVE BEEN ENROLLED IN A CHEMICAL DEPENDENCY/SUBSTANCEABUSE PROGRAM, SOME INFORMATION MAY BE OMITTED. This clinical summary was aggregated from multiple sources. Caution should be exercised in using it in the provision of clinical care. This summary normalizes information from multiple sources, and as a consequence, information in this document may materially change the coding, format and clinical context of patient data. In addition, data may be omitted in some cases. CLINICAL DECISIONS SHOULD BE BASED ON THE PRIMARY CLINICAL RECORDS. [email or web address] provides no warranty or guarantee of the accuracy or completeness of information in this document.
== END | disposition home or self-care (01) ==
LOC: PAVLAB 10:14
PROVIDERS: PCP Nurse Practitioner Family; Referring Provider Internal Medicine Endocrinology, Diabetes & Metabolism; Visit Provider Internal Medicine Endocrinology, Diabetes & Metabolism
DX: E11.9 Type 2 diabetes mellitus without complications (principal); I10 Essential (primary) hypertension; E66.9 Obesity, unspecified
CPT/HCPCS: 36415; 80053; 80061; 82043; 82570; 84443

== ENCOUNTER → 2023-10-14 | Outpatient (CLI) | payer OTHER, SELFPAY ==
--- NOTE | 2023-10-14 10:12 | BI_ITS ---
MAMMOGRAPHY - BILATERAL SCREENING REASON FOR EXAM: Female, 42 years old. Routine annual screening examination. PERTINENT HISTORY: Grandmother with breast cancer. TECHNIQUE: Digital bilateral breast venus (3D mammographic acquisition) in the CC and MLO projections. 2-D mediolateral oblique (MLO) and craniocaudad (CC) views of both breasts were obtained. CAD: Full Field Digital Mammography with Computer Added Detection was performed. COMPARISON: Comparison is made with prior study dated October 08, 2022 and September 02, 2021. FINDINGS: Breast Composition: There are scattered areas of fibroglandular density. There are no dominant masses or suspicious calcifications. Stable bilateral fat-containing axillary lymph nodes. No other significant abnormalities are identified. There has been no significant change since the prior study. BI/SCRN MAMM (CAD)W/VENUS BILAT IMPRESSION: Stable bilateral screening mammogram. Yearly follow-up mammogram recommended. (A) ASSESSMENT CATEGORY: BIRADS Category 2: Benign. A letter regarding these results will be sent to the patient by the facility within 30 days. Approximately 10% of breast cancers are not detected by mammography. A normal mammogram should not delay biopsy of a clinically suspicious abnormality. [id number] Electronically Signed: Dale Stewart MD at 11:17 EDT ,
== END | disposition home or self-care (01) ==
LOC: OPBI 10:12
PROVIDERS: Referring Provider Obstetrics & Gynecology; Visit Provider Obstetrics & Gynecology
DX: Z12.31 Encounter for screening mammogram for malignant neoplasm of breast (principal)
CPT/HCPCS: 77063; 77067

== ENCOUNTER → 2024-11-17 | Outpatient (CLI) | payer OTHER, SELFPAY ==
--- NOTE | 2024-11-17 12:35 | BI_ITS ---
EXAM: SCRN MAMM (CAD)W/VENUS BILAT DATE: 11/17/2024 CLINICAL HISTORY: F, Age 44 y/o , SCREEN BREAST CANCER RISK ASSESSMENT: Not reported TECHNIQUE: Bilateral screening digital breast tomosynthesis with 2D and 3D images. Computer aided detection. COMPARISON: Prior exam(s) were compared FINDINGS: TISSUE DENSITY: The breast tissue is composed of scattered area of fibroglandular density. Bilateral Breast Mammographic Findings: No suspicious masses, calcifications or other abnormalities are identified. BI/SCRN MAMM (CAD)W/VENUS BILAT IMPRESSION: OVERALL FINAL ASSESSMENT: BIRADS 1 NEGATIVE RECOMMENDATION: Routine annual follow-up in 1 Year A letter with findings and recommendations will be mailed to the patient. Reading Location: [id number]
== END | disposition home or self-care (01) ==
LOC: OPBI 12:33
PROVIDERS: PCP Nurse Practitioner Family; Referring Provider Nurse Practitioner Women's Health; Visit Provider Nurse Practitioner Women's Health
DX: Z12.31 Encounter for screening mammogram for malignant neoplasm of breast (principal)
CPT/HCPCS: 77063; 77067